=== PATIENT | male | born 1995 | race Caucasian/White ===

== ENCOUNTER 2017-02-22 18:37 | Emergency (ER) | payer SELFPAY ==
[2017-02-22 18:44] VITALS: BP 151/78; PULSE 55; TEMP 98.4; BMI 27.8
--- NOTE | 2017-02-22 19:14 | PDOC ---
History of Present Illness - General Chief Complaint: Injury Stated Complaint: HAND INJURY Time Seen by Provider: 02/22/17 18:45 History Source: Patient - History of Present Illness Occurred: reports: this morning Upper Extremity Pain Location: left: wrist Past History - Past Medical History Allergies/Adverse Reactions: Allergies Allergy/AdvReac Type Severity Reaction Status Date / Time No Known Allergies Allergy Verified 02/22/17 18:43 Home Medications: Ambulatory Orders NK [No Known Home Medication] 02/22/17 Other medical history: NONE - Psycho/Social/Smoking Cessation Hx Anxiety: No Suicidal Ideation: No Smoking History: Never smoked Hx Alcohol Use: No Drug/Substance Use Hx: No Substance Use Type: None Review of Systems - Review of Systems Constitutional: No: Chills, Fever Musculoskeletal: Yes: Joint Swelling. No: Joint Pain *Physical Exam - Vital Signs Last Vital Signs Temp Pulse Resp BP Pulse Ox 98.4 F 55 L 20 151/78 100 02/22/17 18:38 02/22/17 18:38 02/22/17 18:38 02/22/17 18:38 02/22/17 18:38 - Physical Exam General Appearance: Yes: Appropriately Dressed. No: Apparent Distress HEENT: positive: Normal Voice Neck: positive: Supple Respiratory/Chest: negative: Respiratory Distress Musculoskeletal: positive: Other (firm nodular swelling to dorsum of L wrist ( near radial aspect)) Integumentary: positive: Dry, Warm Neurologic: positive: Fully Oriented, Alert, Normal Mood/Affect Medical Decision Making - Medical Decision Making 02/22/17 19:00 22 yo male, no sig hx p/w painless swelling to dorsum of L wrist that pt awoke with today. Denies any trauma. No f/c. No h/o similar episode See exam Ganglionic cyst -Educated on possible spontaneous regression -Nsaids as needed for pain -hand f/u as needed 02/22/17 19:24 *DC/Admit/Observation/Transfer Diagnosis at time of Disposition: Ganglion cyst - Discharge Dispostion Disposition: HOME Condition at time of disposition: Good - Patient Instructions Printed Discharge Instructions: Ganglion Cyst Additional Instructions: Usted tiene un quiste en la mueca que muy probablemente espontneamente resolver Si el quiste crece o se vuelve demasiado doloroso, siga con el Dr. Saldnaa de la ciruga plstica para el drenaje posible del quiste Print Language: [place]
== END 2017-02-22 19:20 | disposition home or self-care (01) ==
LOC: JERFT 18:37
DX: M67.432 Ganglion, left wrist (principal)
CPT/HCPCS: 99281-25